=== PATIENT | female | born 1970 | race Caucasian/White ===

== ENCOUNTER 2018-04-15 14:35 | Emergency (ER) | payer SELFPAY ==
--- NOTE | 2018-04-15 16:50 | ER Document Report ---
ED Medical Screen (RME) - General Chief Complaint: Vaginal Bleeding Stated Complaint: VAGINAL BLEEDING Time Seen by Provider: 04/15/18 16:31 Mode of Arrival: Ambulatory Information source: Patient - HPI Patient complains to provider of: Vaginal bleeding Onset: Other - This 48-year-old woman presents for evaluation of vaginal bleeding and worsening weakness as well as fatigue in the setting of persistent bleeding over the last month, she had had regular menses up until approximately 1 month ago and since then has had persistent bleeding. She was seen by her candle cutter who started her on an oral contraceptive pill to try and decrease her bleeding which helped only minimally, she is continued to pass bright red blood from her vagina over that time. She has had a previous hemoglobin check which was 8.6 but continued to have worsening weakness and fatigue. She is concerned because she called the candle cutter who said that she should be evaluated if she is feeling so fatigued. She is currently taking iron supplementation twice daily no other medications no other blood thinner use. No breast health problems has had sections in the past. - Related Data Allergies/Adverse Reactions: No Known Allergies Allergy (Verified 04/15/18 16:29) Past Medical History - Social History Chew tobacco use (# tins/day): No Frequency of alcohol use: None Drug Abuse: None Renal/ Medical History: Denies: Hx Peritoneal Dialysis Past Surgical History: Reports: Hx Section - x2 - Immunizations Hx Diphtheria, Pertussis, Tetanus Vaccination: Yes Physical Exam - Vital signs Vitals: Temp Pulse Resp BP Pulse Ox 98.6 F 90 16 142/88 H 98 04/15/18 14:59 04/15/18 14:59 04/15/18 14:59 04/15/18 14:59 04/15/18 14:59 Course - Re-evaluation Re-evalutation: 04/15/18 16:49 This is a 48-year-old woman who presents for abnormal uterine bleeding. Given that she has had a history of abnormal uterine bleeding over the last month we will proceed with pelvic ultrasound she has not had one to evaluate for this, she has had a biopsy of her endometrium which was normal. We will obtain coags as well as a CBC for consideration of possible transfusion if necessary. If patient does not have any obvious active bleeding source identified with a normal CBC for her which apparently is at 8.6 baseline would be reasonable for her to follow-up continuing iron supplementation. - Vital Signs Vital signs: Temp Pulse Resp BP Pulse Ox 98.6 F 90 16 142/88 H 98 04/15/18 14:59 04/15/18 14:59 04/15/18 14:59 04/15/18 14:59 04/15/18 14:59 Doctor's Discharge - Discharge Referrals: JAY JAY NEWELL MD [Primary Care Provider] - Follow up as needed
[2018-04-15 17:07] LABS: ABSOLUTE BASOPHILS # (AUTO) 0.1 10^3/uL (0.0-0.2); ABSOLUTE LYMPHOCYTES (AUTO) 2.1 10^3/uL (0.5-4.7); ABSOLUTE MONOCYTES (AUTO) 0.5 10^3/uL (0.1-1.4); ABSOLUTE NEUT (AUTO) 6.5 10^3/uL (1.7-8.2); BASOPHILS % (AUTO) 0.8 % (0-2); EOSINOPHILS % (AUTO) 0.5 % (0-6); HEMATOCRIT 35.7 % (36.0-47.0); HEMOGLOBIN 12.2 g/dL (12.0-15.5); LYMPHOCYTES % (AUTO) 22.6 % (13-45); MEAN CORPUSCULAR HEMOGLOBIN 29.8 pg (27.0-33.4); MEAN CORPUSCULAR HGB CONC 34.2 g/dL (32.0-36.0); MEAN CORPUSCULAR VOLUME 87 fl (80-97); MONOCYTES % (AUTO) 5.6 % (3-13); PLATELET COUNT 435 10^3/uL (150-450); RED CELL DISTRIBUTION WIDTH 14.4 % (11.5-14.0); SEGMENTED NEUTROPHILS % (AUTO) 70.5 % (42-78); TOTAL CELLS COUNTED % (AUTO) 100 %; WHITE BLOOD COUNT 9.2 10^3/uL (4.0-10.5)
--- NOTE | 2018-04-15 17:12 | ER Document Report ---
HPI - HPI Pain Level: 2 - REPRODUCTIVE LMP: Current Reproductive: DENIES: : - DERM Skin Color: Pale Past Medical History - General Information source: Patient - Social History Smoking Status: Current Every Day Smoker Chew tobacco use (# tins/day): No Frequency of alcohol use: None Drug Abuse: None Family History: Reviewed & Not Pertinent Patient has suicidal ideation: No Patient has homicidal ideation: No Renal/ Medical History: Denies: Hx Peritoneal Dialysis Past Surgical History: Reports: Hx Section - x2 - Immunizations Hx Diphtheria, Pertussis, Tetanus Vaccination: Yes Course - Vital Signs Vital signs: Temp Pulse Resp BP Pulse Ox 98.6 F 90 16 142/88 H 98 04/15/18 14:59 04/15/18 14:59 04/15/18 14:59 04/15/18 14:59 04/15/18 14:59 - Laboratory Result Diagrams: 04/15/18 16:40 04/15/18 16:40 Laboratory results interpreted by me: 04/15/18 16:40 Hct 35.7 L RDW 14.4 H Discharge - Discharge Referrals: JAY JAY NEWELL MD [Primary Care Provider] - Follow up as needed
--- NOTE | 2018-04-15 17:19 | RADIOLOGY REPORT (SQ) ---
EXAM DESCRIPTION: U/S NON-OB PELVIS TV W/O DOP COMPLETED DATE/TIME: 04/15/2018 5:03 pm REASON FOR STUDY: abnormal uterine bleeding COMPARISON: None. TECHNIQUE: Dynamic and static grayscale images acquired of the pelvis via transvaginal approach and recorded on PACS. Additional selected color Doppler and spectral images recorded. LIMITATIONS: None. FINDINGS: UTERUS: Contour normal. No mass. ENDOMETRIAL STRIPE: There is some thickening of the endometrial. No masses. CERVIX: No nabothian cysts. RIGHT OVARY AND DOPPLER: Right ovary was not visualized. LEFT OVARY AND DOPPLER: Left ovary was not visualized. FREE FLUID: None noted. OTHER: No other significant finding. MEASUREMENTS: UTERUS: 10.3 x 5.0 x 5.8 cm ENDOMETRIAL STRIPE: 17 mm IMPRESSION: Somewhat limited study as noted above as neither ovary was visualized. There is some th ickening of the endometrium. No other significant pelvic abnormalities were identified. TECHNICAL DOCUMENTATION: JOB ID: [id number] [employer]- All Rights Reserved Rev-01/05 Reading location - IP/workstation name: [email or web address]
[2018-04-15 17:24] LABS: APPEARANCE,URINE CLEAR; BILIRUBIN,URINE NEGATIVE (NEGATIVE); COLOR,URINE YELLOW; GLUCOSE, URINE NEGATIVE (NEGATIVE); KETONES,URINE NEGATIVE (NEGATIVE); LEUKOCYTE ESTERASE,URINE NEGATIVE (NEGATIVE); NITRITE,URINE NEGATIVE (NEGATIVE); PROTEIN,URINE NEGATIVE (NEGATIVE); URINE SPECIFIC GRAVITY 1.005; UROBILINOGEN,URINE NEGATIVE mg/dL (<2.0)
[2018-04-15 17:26] LABS: ANION GAP 14 (5-19); BLOOD UREA NITROGEN 4 mg/dL (7-20); CALCIUM 9.7 mg/dL (8.4-10.2); CARBON DIOXIDE 22 mmol/L (22-30); CHLORIDE 111 mmol/L (98-107); GLUCOSE 87 mg/dL (75-110); POTASSIUM 4.2 mmol/L (3.6-5.0); SODIUM 147.3 mmol/L (137-145)
--- NOTE | 2018-04-15 17:31 | ER Document Report ---
ED GI/ - General Chief Complaint: Vaginal Bleeding Stated Complaint: VAGINAL BLEEDING Time Seen by Provider: 04/15/18 16:31 Mode of Arrival: Ambulatory Notes: 48-year-old female that started having heavy bleeding this month for the first time has seen MANGLE ROLL OPERATOR several times. The MANGLE ROLL OPERATOR at [place] MANGLE ROLL OPERATOR placed her on Advair at 10 mg 3 times a day which she took for 10 days and she got another prescription she is on her second day of that. She does have some clots but not very large. There is no pelvic pain. She did tell MANGLE ROLL OPERATOR that the vagina had some abnormal smells with this month. No history of STD. Ultrasounds at the [place] MANGLE ROLL OPERATOR did not discern anything. She has an appointment on the for a repeat ultrasound. Dr. Mera checked a hemoglobin at the office and found it to be 8.4 and when she is stated that she had some fatigue and dizziness today he wanted her to be seen in the emergency room in case her hemoglobin was even lower. No headache sore throat runny nose or cough. No chest pain or shortness of breath. No abdominal pain. No radiculopathy. - Related Data Allergies/Adverse Reactions: No Known Allergies Allergy (Verified 04/15/18 16:29) Past Medical History - General Information source: Patient - Social History Smoking Status: Current Every Day Smoker Chew tobacco use (# tins/day): No Frequency of alcohol use: None Drug Abuse: None Family History: Reviewed & Not Pertinent Patient has suicidal ideation: No Patient has homicidal ideation: No Renal/ Medical History: Denies: Hx Peritoneal Dialysis Past Surgical History: Reports: Hx Section - x2 - Immunizations Hx Diphtheria, Pertussis, Tetanus Vaccination: Yes Review of Systems - Review of Systems Constitutional: No symptoms reported EENT: No symptoms reported Cardiovascular: No symptoms reported Respiratory: No symptoms reported Gastrointestinal: No symptoms reported Genitourinary: No symptoms reported Female Genitourinary: See HPI Musculoskeletal: No symptoms reported Skin: No symptoms reported Hematologic/Lymphatic: No symptoms reported Neurological/Psychological: See HPI Physical Exam - Vital signs Vitals: Temp Pulse Resp BP Pulse Ox 98.6 F 90 16 142/88 H 98 04/15/18 14:59 04/15/18 14:59 04/15/18 14:59 04/15/18 14:59 04/15/18 14:59 Interpretation: Normal - General General appearance: Appears well, Alert - HEENT Head: Normocephalic, Atraumatic Eyes: Normal Pupils: PERRL - Respiratory Respiratory status: No respiratory distress Chest status: Nontender Breath sounds: Normal Chest palpation: Normal - Cardiovascular Rhythm: Regular Heart sounds: Normal auscultation Murmur: No - Abdominal Inspection: Normal Distension: No distension Bowel sounds: Normal Tenderness: Nontender Organomegaly: No organomegaly - Back Back: Normal, Nontender. No: CVA tenderness - Extremities General upper extremity: Normal inspection, Nontender, Normal color, Normal ROM , Normal temperature General lower extremity: Normal inspection, Nontender, Normal color, Normal ROM , Normal temperature, Normal weight bearing. No: Marcella's sign - Neurological Neuro grossly intact: Yes Cognition: Normal Orientation: AAOx4 [place] Coma Scale Eye Opening: Spontaneous [place] Coma Scale Verbal: Oriented [place] Coma Scale Motor: Obeys Commands [place] Coma Scale Total: 15 Speech: Normal Motor strength normal: LUE, RUE, LLE, RLE Sensory: Normal - Psychological Associated symptoms: Normal affect, Normal mood - Skin Skin Temperature: Warm Skin Moisture: Dry Skin Color: Normal Skin irregularity: negative: Rash Course - Re-evaluation Re-evalutation: 04/15/18 18:30 Hemoglobin is 12.2 the hemoglobin that she mentioned was 8.[address] Mera' s office. She has had some clots today but not a lot of bleeding. She is no pelvic pain today. She did mention that some of the bleeding that she has had has a strange odor and she had told the DEVELOPMENT EDUCATOR doctor. She was not sure if they have checked for STI or bacterial vaginosis so that is why I did those tests. TSH is pending. Her ultrasound shows thickened endometrium at 17 mm and she will follow-up with MANGLE ROLL OPERATOR for that I will have her call me back for the gonorrhea and chlamydia results. The wet prep looks like possible bacterial vaginosis with 4+ bacteria and 3+ epithelial cells are is no trichomonas and rare WBCs I will treat her with Flagyl and she will continue the Provera as prescribed by the MANGLE ROLL OPERATOR. TSH is WNL. 04/15/18 20:47 Patient call back the gonorrhea and chlamydia is negative and I discussed this with the patient. - Vital Signs Vital signs: Temp Pulse Resp BP Pulse Ox 98.4 F 84 16 150/95 H 99 04/15/18 18:49 04/15/18 18:49 04/15/18 18:49 04/15/18 18:49 04/15/18 18:49 - Laboratory Result Diagrams: 04/15/18 16:40 04/15/18 16:40 Laboratory results interpreted by me: 04/15/18 04/15/18 04/15/18 16:40 16:40 16:40 Hct 35.7 L RDW 14.4 H Sodium 147.3 H Chloride 111 H BUN 4 L Urine Blood LARGE H Discharge - Discharge Clinical Impression: Vaginal bleeding, Bacterial vaginosis Condition: Good Disposition: HOME, SELF-CARE Instructions: Metronidazole ([facility]), Vaginal Bleeding ([facility]), Vaginosis, Bacterial ([facility]) Additional Instructions: Gonorrhea and Chlamydia test are pending. Call me back in 2 hours [phone] for the results See the MANGLE ROLL OPERATOR for follow-up Copy of everything given to you The wet prep shows possible bacterial vaginosis which she can treat with metronidazole twice a day. Do not drink alcohol when taking the Flagyl Return to the emergency room for increased pain bleeding any concerns Prescriptions: Metronidazole [Flagyl 500 mg Tablet] 500 mg PO BID #14 tablet Referrals: JAY JAY NEWELL MD [ACTIVE STAFF] - Follow up as needed
[2018-04-15 17:54] LABS: BACTERIA (WET MOUNT) 4+ BACTERIA SEEN; EPITHELIALS (WET MOUNT) 3+ EPITHELIALS SEEN; RBCS (WET MOUNT) 4+ RBCS SEEN; T.VAGINALIS (WET MOUNT) NO TRICHOMONAS SEEN; WBCS (WET MOUNT) RARE WBCS SEEN; YEAST (WET MOUNT) NO YEAST SEEN
[2018-04-15 19:02] VITALS: BP 150/95
[2018-04-15 19:22] LABS: CHLAM PCR NOT DETECTED (NOT DETECT); GON PCR NOT DETECTED (NOT DETECT)
== END 2018-04-15 19:01 | disposition home or self-care (01) ==
LOC: ER 14:35
DX: N93.9 Abnormal uterine and vaginal bleeding, unspecified (principal); N76.0 Acute vaginitis; B96.89 Other specified bacterial agents as the cause of diseases classified elsewhere; R53.83 Other fatigue; R42 Dizziness and giddiness; F17.200 Nicotine dependence, unspecified, uncomplicated; R93.8 Abnormal findings on diagnostic imaging of other specified body structures
CPT/HCPCS: 36415; 76830; 80048; 81001; 81025; 84443; 85025; 87210; 87491; 87591; 99284

== ENCOUNTER 2018-06-07 05:30 | Day surgery (SDC) | payer OTHER ==
[2018-06-05 12:05] LABS: HEMATOCRIT 36.9 % (36.0-47.0); HEMOGLOBIN 12.6 g/dL (12.0-15.5); MEAN CORPUSCULAR HEMOGLOBIN 29.1 pg (27.0-33.4); MEAN CORPUSCULAR HGB CONC 34.2 g/dL (32.0-36.0); MEAN CORPUSCULAR VOLUME 85 fl (80-97); PLATELET COUNT 308 10^3/uL (150-450); RED BLOOD COUNT 4.33 10^6/uL (3.72-5.28); RED CELL DISTRIBUTION WIDTH 14.2 % (11.5-14.0); WHITE BLOOD COUNT 8.7 10^3/uL (4.0-10.5)
[2018-06-05 12:11] LABS: APPEARANCE,URINE SLIGHTLY-CLOUDY; BILIRUBIN,URINE NEGATIVE (NEGATIVE); COLOR,URINE STRAW; GLUCOSE, URINE NEGATIVE (NEGATIVE); KETONES,URINE NEGATIVE (NEGATIVE); LEUKOCYTE ESTERASE,URINE NEGATIVE (NEGATIVE); NITRITE,URINE NEGATIVE (NEGATIVE); PROTEIN,URINE NEGATIVE (NEGATIVE); URINE SPECIFIC GRAVITY 1.004; UROBILINOGEN,URINE NEGATIVE mg/dL (<2.0)
[2018-06-05 12:28] LABS: ANION GAP 8 (5-19); BLOOD UREA NITROGEN 8 mg/dL (7-20); CALCIUM 9.4 mg/dL (8.4-10.2); CARBON DIOXIDE 26 mmol/L (22-30); CHLORIDE 108 mmol/L (98-107); GLUCOSE 81 mg/dL (75-110); POTASSIUM 4.6 mmol/L (3.6-5.0); SODIUM 141.6 mmol/L (137-145)
[~2018-06-07 05:30] MED LIST: CEFAZOLIN 1 GM/D5W RTU 1 GM/50 ML RTUPB IV ONE; CEFAZOLIN 1 GM/D5W RTU 1 GM/50 ML RTUPB IV PRN; LACTATED RINGERS 1000 ML IV PRN; LIDOCAINE 0.5% INJ-PF (5 MG/ML) 50 ML SDV SUBCUT PRN
[2018-06-07] MEDS ORDERED: FENTANYL CITRATE INJ/PF 100 MCG/2 ML AMPUL ONE (06:54)
[2018-06-07] MEDS ORDERED: MIDAZOLAM 2 MG/2 ML INJ ONE (06:55)
[2018-06-07] MEDS ORDERED: PROPOFOL INJ 200 MG/20 ML VIAL IV ONE (06:55)
[2018-06-07] MEDS ORDERED: DIPHENHYDRAMINE HCL 50 MG/ML VIAL IV PRN (07:37)
[2018-06-07] MEDS ORDERED: MEPERIDINE HCL/PF INJ 25 MG/1 ML DISP.SYRIN IV PRN (07:37)
[2018-06-07] MEDS ORDERED: FENTANYL CITRATE INJ/PF 100 MCG/2 ML AMPUL IV PRN ×3 (07:37)
[2018-06-07] MEDS ORDERED: PROMETHAZINE HCL INJ 25 MG/1 ML VIAL IV PRN (07:37)
[2018-06-07] MEDS ORDERED: DEXAMETHASONE SOD PHOSPHATE INJ 4 MG/1 ML VIAL ONE (08:15)
[2018-06-07] MEDS ORDERED: LIDOCAINE 2% INJ-PF (20 MG/ML) 2 ML AMPUL ONE (08:15)
[2018-06-07] MEDS ORDERED: ONDANSETRON HCL INJ/PF 4 MG/2 ML SDV ONE (08:15)
[2018-06-07] MEDS ORDERED: KETOROLAC TROMETHAMINE INJ/PF 30 MG/1 ML SDV ONE (08:23)
[2018-06-07] MEDS ORDERED: ACETAMINOPHEN 1,000 MG/100 ML RTUPB IV ONE (08:23)
[2018-06-07] MEDS ORDERED: OXYCODONE-ACETAMINOPHEN 5-325 MG TABLET PO PRN (08:24)
[2018-06-07] MEDS ORDERED: MORPHINE SULFATE 10 MG/ML INJ INJ PRN (08:25)
[2018-06-07] MEDS ORDERED: PROMETHAZINE HCL INJ 25 MG/1 ML VIAL IM PRN (08:25)
--- NOTE | 2018-06-07 08:26 | OPERATIVE REPORT E ---
Operative Report NAME: TYREE HOLGUIN : 1970 AGE: 48Y DATE OF SURGERY: 06/07/2018 ROOM: PREOPERATIVE DIAGNOSIS: Menorrhagia. POSTOPERATIVE DIAGNOSES: 1. Menorrhagia. 2. Endometrial polyp. PROCEDURES: 1. Hysteroscopy. 2. MyoSure. 3. Novasure ablation. SURGEON: ANA LUISA HENDERSON M.D. COMPLICATIONS: None. ANESTHESIA: LMA. FINDINGS: A small endometrial polyp, benign appearing, possibly 1 cm posterior wall, otherwise normal endometrial cavity. The length was 6.5 cm, width was 3.3 cm, burned for 90 seconds. INDICATION FOR PROCEDURE: The patient had profound bleeding unresponsive to usual outpatient management. Ultrasound demonstrated endometrial polyp. Outpatient biopsy was benign. ESTIMATED BLOOD LOSS: Approximately 5 mL. DESCRIPTION OF PROCEDURE: The patient was taken to the operating room and placed in the modified lithotomy position. After adequate anesthesia ascertained, prepped and draped in the usual manner for a hysteroscopy. A hysteroscope was inserted directly without dilation after uterine measurements were taken and the UA, surgical timeout performed. The hysteroscopy ensued. Polyp was noted. MyoSure deployed. The polyp was removed en toto. Hysteroscope was removed. Novasure device was placed after measurements were taken. The burn ensued and patient had a vagal response for approximately 20 seconds during the Novasure burn time frame. This responded well post procedure. At the completion of procedure, all sponge and needle counts were corrected. It is noted that due to the absence of a trap, the specimen was not sent to pathology. Patient taken to recovery room in stable condition. DICTATING PHYSICIAN: ANA LUISA HENDERSON M.D. [id number] PHY#: [id number] ID: [id number] JOB#: [id number] ACCT: [id number] cc:ANA LUISA HENDERSON M.D. >
[2018-06-07] MEDS ORDERED: OXYCODONE-ACETAMINOPHEN 5-325 MG TABLET ONE (09:07)
[2018-06-07 10:06] VITALS: BP 146/67
[2018-06-07] MEDS ORDERED: IBUPROFEN 800 MG TABLET PO SCH (14:00)
== END 2018-06-07 10:05 | disposition home or self-care (01) ==
LOC: OROUT 05:30
PROVIDERS: ATTEND Specialist
DX: N94.4 Primary dysmenorrhea (principal); N84.0 Polyp of corpus uteri
CPT/HCPCS: 86900; 86901; 36415; 86850; 85027; 81025; 80048; 81001; 88305 ×2; 58563; J2250; J0690; J1100; J3010; J1885; J2405; J2704; J0131; J3490; 952